=== PATIENT | female | born 1985 | race Two or more races ===

== ENCOUNTER 2023-12-04 16:29 | Emergency (ER) | payer OTHER ==
[~2023-12-04] VITALS: Ht 167.6 cm; Wt 104.3 kg
[2023-12-04] MEDS ORDERED: NIFEDIPINE20 MG PO (18:10)
[2023-12-04 19:07] LABS: HEMATOCRIT 36.3 % (36.0-45.00); HEMOGLOBIN 12.3 g/dL (12.0-15.00); MEAN CELL VOLUME 88.5 fL (80.00-100.00); MEAN CORPUSCULAR HEMOGLOBIN 29.9 pg (27.00-32.0); MEAN CORPUSCULAR HGB CONC 33.8 g/dl (32.0-36.0); PLATELET COUNT 219 K/uL (150-450); RED CELL DISTRIBUTION WIDTH 15.2 % (11.5-14.5)
[2023-12-04 20:38] LABS: URINE APPEARANCE Cloudy; URINE BILIRRUBIN Negative (NEGATIVE); URINE BLOOD Negative; URINE COLOR Yellow; URINE GLUCOSE Negative (NEGATIVE); URINE LEUKOCYTE Moderate; URINE NITRATE Negative; URINE PROTEIN Negative (NEGATIVE); URINE UROBILINOGEN 0.2 E.U./dl
[2023-12-04 20:42] LABS: URINE BACTERIA 4239.6 uL (0.0-1933); URINE RBC 45.1 uL (0.0-20.8); URINE WBC 72.9 uL (0.0-23.2)
[2023-12-04] MEDS ORDERED: CEPHALEXIN500 M1 PO (22:41)
== END 2023-12-04 23:19 ==
LOC: ER 16:29
PROVIDERS: Nurse Practitioner Family
DX: O26.891 Other specified pregnancy related conditions, first trimester (principal); O30.011 Twin pregnancy, monochorionic/monoamniotic, first trimester; O10.911 Unspecified pre-existing hypertension complicating pregnancy, first trimester; Z3A.01 Less than 8 weeks gestation of pregnancy

== ENCOUNTER 2024-11-08 07:41 | Day surgery (SDC) | payer OTHER ==
[~2024-11-08 07:41] MED LIST: CEPHALEXIN500 M1 PO; LABETALOL HCL100 MG PO; MACRODANTIN100 M1 PO; NIFEDIPINE20 MG PO; VITATRUE COMBO1 EACH
[2024-11-08] MEDS ORDERED: DIPHENHYDRAMINE HCL 50 MG/ML VIAL 1ML IV ONE (11:30)
[2024-11-08] MEDS ORDERED: MIDAZOLAM HCL 2 MG/2 ML VIAL IV ONE (11:30)
[2024-11-08] MEDS ORDERED: fentaNYL CITRATE 50 MCG/ML AMPUL IV PUSH ONE (11:30)
== END 2024-11-08 12:45 | disposition home or self-care (01) ==
LOC: AMB-ENDOS 07:41
PROVIDERS: ATTEND Colon & Rectal Surgery
DX: K63.5 Polyp of colon (principal); K62.5 Hemorrhage of anus and rectum; Z91.09 Other allergy status, other than to drugs and biological substances

== ENCOUNTER 2025-03-21 08:30 | Inpatient (IN) | payer OTHER ==
[~2025-03-21] VITALS: Ht 167.6 cm; Wt 106.1 kg
[2025-03-21 10:02] VITALS: BP 124/87
[2025-03-21 10:30] LABS: BASO % 0.5 % (0.1-1.2); EOS % 1.8 % (0.7-7.0); HEMATOCRIT 39.4 % (34.1-44.9); HEMOGLOBIN 13.2 g/dL (11.2-15.7); LYMPH # 1.57 (1.18-3.74); MEAN CORPUSCULAR HEMOGLOBIN 29.1 pg (25.6-32.2); MONO # 0.35 (0.24-0.82); MONO % 6.3 % (4.7-12.5); NEUT # 3.53 (1.56-6.13); PLATELET COUNT 252 K/uL (163-369); RED BLOOD COUNT 4.54 M/uL (3.93-5.22); RED CELL DISTRIBUTION WIDTH 13.2 % (11.6-14.4)
[2025-03-21 10:47] LABS: PH,URINE 6.5 (5.0-8.0); URINE APPEARANCE Clear; URINE BILIRRUBIN Negative (NEGATIVE); URINE BLOOD Negative; URINE COLOR Yellow; URINE GLUCOSE Negative (NEGATIVE); URINE KETONE Negative (NEGATIVE); URINE LEUKOCYTE Small; URINE NITRATE Negative; URINE PROTEIN Negative (NEGATIVE); URINE UROBILINOGEN 0.2 E.U./dl
[2025-03-21 10:50] LABS: INR 0.94; PARTIAL THROMBOPLASTIN TIME 27.3 SECONDS (22.0-34.0); PROTHROMBIN TIME 10.3 SECONDS (9.0-11.5)
[2025-03-21 10:51] LABS: URINE BACTERIA 1081.8 uL (0.0-1933); URINE EPITHELIAL CELLS 100.3 uL (0.0-38.8); URINE RBC 4.4 uL (0.0-20.8); URINE WBC 19.9 uL (0.0-23.2)
[2025-03-21 11:37] LABS: ALBUMIN 3.9 gm/dL (3.4-5.0); ALKALINE PHOSPHATASE 66 U/L (50-136); ALT/SGPT 20 U/L (12-78); ANION GAP 9 (10.0-20.0); AST/SGOT 13 U/L (15-37); BILIRUBIN TOTAL 0.47 mg/dL (0.3-1.2); BLOOD UREA NITROGEN 12 mg/dL (7-18); BUN CREA RATIO 23 (7.0-25.0); CALCIUM 9.3 mg/dL (8.5-10.1); CARBON DIOXIDE 25 mEq/L (21-32); CHLORIDE 112 mmol/L (98-107); CREATININE SERUM 0.53 mg/dL (0.55-1.02); GFR 127.12; GLOBULINA 3.7 G/DL (2.4-3.5); GLUCOSE FASTING 78 mg/dL (65-100); OSMOLALITY SERUM 282 MOSM/KG (275-295); POTASSIUM 4.12 mEq/L (3.5-5.1); SODIUM 142 mmol/L (136-145); TOTAL PROTEIN 7.6 gm/dL (6.4-8.2)
[2025-03-21 11:38] LABS: RH POSITIVE
[2025-03-21 11:42] LABS: HCG QUANTITATIVE < 1 mUI/mL (1-3)
[2025-03-28] MEDS ORDERED: CEFAZOLIN SODIUM 1,000 MG VIAL ONE (06:54)
[2025-03-28] MEDS ORDERED: POVIDONE-IODINE 118 ML BOTT TOP ONE (07:19)
[2025-03-28] MEDS ORDERED: VASOPRESSIN 20 UNITS/ML VIAL IJ ONE (08:00)
[2025-03-28] MEDS ORDERED: METHYLENE BLUE 50MG/10ML AMP IV ONE (09:06)
[2025-03-28] MEDS ORDERED: VISTASEAL DUAL APPICATOR 1 EACH APPL TOP ONE (11:57)
[2025-03-28] MEDS ORDERED: THROMBIN,HU/FIBRINOGEN/CALCIUM 10 ML SYRINGE TOP ONE (11:57)
[2025-03-28] MEDS ORDERED: TRANEXAMIC ACID 100MG/1ML (1000MG) AMPUL IV ONE (11:57)
[2025-03-28] MEDS ORDERED: ACETAMINOPHEN 500 MG GEL..CAP PO SCH (13:54)
[2025-03-28] MEDS ORDERED: ONDANSETRON HCL 2 MG/ML VIAL IV PRN (14:00)
[2025-03-28] MEDS ORDERED: RINGERS SOLUTION,LACTATED 1,000 ML IV SCH (14:00)
[2025-03-28] MEDS ORDERED: MORPHINE SULFATE 4 MG/ML CARTRIDGE IV PRN (14:00)
[2025-03-28] MEDS ORDERED: KETOROLAC TROMETHAMINE 30 MG VIAL ONE (14:44)
[2025-03-28] MEDS ORDERED: GABAPENTIN 300 MG CAPSULE PO ONE (16:17)
[2025-03-28] MEDS ORDERED: GABAPENTIN 300 MG CAPSULE PO SCH (17:00)
[2025-03-28] MEDS ORDERED: TAMSULOSIN HCL 0.4 MG CAP PO NR (17:00)
[2025-03-28 17:04] VITALS: BP 136/82; O2SAT 95
[2025-03-28] MEDS ORDERED: KETOROLAC TROMETHAMINE 30 MG VIAL IV SCH (18:00)
[2025-03-28] MEDS ORDERED: ENALAPRILAT DIHYDRATE 1.25 MG/ML VIAL IV PRN (22:45)
[2025-03-29 01:22] VITALS: BP 138/73; O2SAT 99
[2025-03-29 08:25] LABS: BASO % 0.3 % (0.1-1.2); EOS # 0.03 (0.04-0.54); EOS % 0.4 % (0.7-7.0); HEMATOCRIT 35.8 % (34.1-44.9); HEMOGLOBIN 11.5 g/dL (11.2-15.7); LYMPH # 1.64 (1.18-3.74); LYMPH % 20.7 % (19.3-53.1); MEAN CORPUSCULAR HEMOGLOBIN 28.8 pg (25.6-32.2); MONO # 0.64 (0.24-0.82); MONO % 8.1 % (4.7-12.5); NEUT # 5.57 (1.56-6.13); PLATELET COUNT 199 K/uL (163-369); RED BLOOD COUNT 3.99 M/uL (3.93-5.22); RED CELL DISTRIBUTION WIDTH 13.9 % (11.6-14.4)
[2025-03-29 08:49] VITALS: BP 125/77; O2SAT 94
[2025-03-29] MEDS ORDERED: FAMOTIDINE/PF 20 MG in 0.9 % SODIUM CHLORIDE 8 ML IV PUSH SCH (09:00)
[2025-03-29] MEDS ORDERED: NIFEDIPINE 30 MG TAB.SA.OSM PO SCH (09:00)
[2025-03-29] MEDS ORDERED: LABETALOL HCL 200 MG TABLET PO SCH (09:00)
== END 2025-03-29 14:16 | disposition home or self-care (01) | DRG 743 ==
LOC: SURG 03-28 05:23 → O/R 03-28 05:23 → SURH 03-28 07:00 → SURG 03-28 15:28
PROVIDERS: ADMIT Student in an Organized Health Care Education/Training Program; ATTEND Student in an Organized Health Care Education/Training Program
PROC: 0TN74ZZ Release Left Ureter, Percutaneous Endoscopic Approach (ICD-10-PCS; 2025-03-28)
PROC: 0UDB8ZZ Extraction of Endometrium, Via Natural or Artificial Opening Endoscopic (ICD-10-PCS; 2025-03-28)
PROC: 0UBF4ZZ Excision of Cul-de-sac, Percutaneous Endoscopic Approach (ICD-10-PCS; 2025-03-28)
PROC: 0UB44ZZ Excision of Uterine Supporting Structure, Percutaneous Endoscopic Approach (ICD-10-PCS; 2025-03-28)
PROC: 0WBH4ZZ Excision of Retroperitoneum, Percutaneous Endoscopic Approach (ICD-10-PCS; 2025-03-28)
PROC: 8E0W4CZ Robotic Assisted Procedure of Trunk Region, Percutaneous Endoscopic Approach (ICD-10-PCS; 2025-03-28)
PROC: 3E1P88Z Irrigation of Female Reproductive using Irrigating Substance, Via Natural or Artificial Opening Endoscopic (ICD-10-PCS; 2025-03-28)
PROC: 0UB94ZZ Excision of Uterus, Percutaneous Endoscopic Approach (ICD-10-PCS; principal; 2025-03-28 07:00)
DX: D25.1 Intramural leiomyoma of uterus (principal); N80.3C1 Endometriosis of the right uterosacral ligament, unspecified depth; N80.329 Endometriosis of the posterior cul-de-sac, unspecified depth; N80.399 Endometriosis of the pelvic peritoneum, other specified sites, unspecified depth
CPT/HCPCS: 58546; 58350; 58662; 50715; S2900